=== PATIENT | female | born 2000 | race American Indian/Alaskan Native ===

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

== ENCOUNTER 2019-05-21 14:12 | Emergency (ER) | payer SELFPAY ==
[2019-05-21 14:19] VITALS: BP 131/59
--- NOTE | 2019-05-21 14:20 | Event Note ---
ED Screening Note ED Screening Note: diarrhea and vomiting; fever for 1 day feels like abd is getting bigger lmp 5 m ago no bc sexually active pcp none pmh none psh none just had baby 1 y ago; [id number] rx otc denies cig/etoh/drugs This initial assessment/diagnostic orders/clinical plan/treatment(s) is/are subject to change based on patients health status, clinical progression and re- assessment by fellow clinical providers in the ED. Further treatment and workup at subsequent clinical providers discretion. Patient/guardian urged not to elope from the ED as their condition may be serious if not clinically assessed and managed. Initial orders include: ua ro preg once neg KUB
--- NOTE | 2019-05-21 15:54 | Emergency Department Report ---
ED Abdominal Pain HPI - General Chief Complaint: Abdominal Pain Stated Complaint: VOMITING/DIFFICULTY WHEN HAVING A BOWEL MOVEMENT Time Seen by Provider: 05/21/19 14:18 Source: patient Mode of arrival: Ambulatory Limitations: No Limitations - History of Present Illness Initial Comments: 19 year old -Slov[place] female presents to the emergency room complaining of nausea and vomiting and abdominal pain since last night. Patient reports that she has pain with urination feels like pressure and has not had a bowel movement and 1.5 weeks. Patient does admit to not having a period 5 months. She also admits to eating starch and white dirt. Patient is 2 para 1. Location: diffuse Radiation: none Migration to: no migration Severity scale (0 -10): 9 Quality: fullness, other (pressure) Consistency: constant Improves With: nothing Worsens With: nothing Associated Symptoms: nausea, vomiting, constipation - Related Data LMP (females 10-50): other (5 months ago) Previous Rx's Medication Instructions Recorded Last Taken Type Ferrous Sulfate [Feosol 325 MG tab] 325 mg PO BID #60 tablet 02/13/18 Unknown Rx Ibuprofen [Motrin 600 MG tab] 600 mg PO Q6H #30 tablet 02/13/18 Unknown Rx Vit-Fe Fumar-FA [ 1 each PO QDAY #30 tablet 05/21/19 Unknown Rx Vitamin] Allergies Allergy/AdvReac Type Severity Reaction Status Date / Time banana AdvReac Rash Verified 01/07/18 22:16 ED Review of Systems ROS: Stated complaint: VOMITING/DIFFICULTY WHEN HAVING A BOWEL MOVEMENT Other details as noted in HPI Comment: All other systems reviewed and negative ED Past Medical Hx - Past Medical History Previous Medical History?: No Hx Hypertension: No Hx Congestive Heart Failure: No Hx Diabetes: No Hx Deep Vein Thrombosis: No Hx Renal Disease: No Hx Sickle Cell Disease: No Hx Seizures: No Hx Asthma: No Hx COPD: No Hx HIV: No - Surgical History Past Surgical History?: No - Social History Smoking Status: Never Smoker Substance Use Type: None - Medications Home Medications: Home Medications Medication Instructions Recorded Confirmed Last Taken Type Ferrous Sulfate [Feosol 325 MG tab] 325 mg PO BID #60 tablet 02/13/18 Unknown Rx Ibuprofen [Motrin 600 MG tab] 600 mg PO Q6H #30 tablet 02/13/18 Unknown Rx Vit-Fe Fumar-FA [ 1 each PO QDAY #30 tablet 05/21/19 Unknown Rx Vitamin] ED Physical Exam - General Limitations: No Limitations General appearance: alert, in no apparent distress - Head Head exam: Present: atraumatic, normocephalic - Eye Eye exam: Present: normal appearance - ENT ENT exam: Present: mucous membranes moist - Respiratory Respiratory exam: Present: normal lung sounds bilaterally. Absent: respiratory distress - GI/Abdominal GI/Abdominal exam: Present: soft, distended, normal bowel sounds. Absent: tenderness, guarding - Back Exam Back exam: Present: normal inspection - Neurological Exam Neurological exam: Present: alert, oriented X3 - Psychiatric Psychiatric exam: Present: normal affect, normal mood - Skin Skin exam: Present: warm, dry, intact, normal color. Absent: rash ED Course Vital Signs 05/21/19 14:18 Temperature 99.0 F Pulse Rate 101 H Respiratory 16 Rate Blood Pressure 131/59 O2 Sat by Pulse 98 Oximetry ED Medical Decision Making - Lab Data Result diagrams: 05/21/19 16:04 05/21/19 16:04 - Radiology Data Radiology results: report reviewed Patient: FAWAD MCGEE MR#: [id number] : 2000 Acct:[id number] Age/Sex: 19 / F ADM Date: 05/21/19 Loc: ED Attending Dr: Ordering Physician: KUMAR BLAKE Date of Service: 05/21/19 Procedure(s): US OB >= 14 wk fetus add gest Accession Number(s): [id number] cc: KUMAR BLAKE OB ultrasound. 05/21/2019. HISTORY: . Abdominal pain. FINDINGS: A viable intrauterine is dated 22 weeks 0 days. Estimated weight is 574 g. heart tones are 136 bpm. position is cephalic. The placenta is anteriorly located. Head circumference significantly lags femur length. IMPRESSION: 1. Viable intrauterine in the cephalic position. 2. Head circumference significantly lags femur length. Follow-up ultrasound is recommended. Signer Name: Leobardo Alford MD Signed: 05/21/2019 6:30 PM Workstation Name: [id number] Transcribed By: ES Dictated By: Leobardo Alford MD Electronically Authenticated By: Leobardo Alford MD Signed Date/Time: 05/21/191829 DD/ 26 TD/TT: - Medical Decision Making 19 year old -Slov[place] female presents to the emergency room complaining of nausea and vomiting and abdominal pain since last night. Patient reports that she has pain with urination feels like pressure and has not had a bowel movement and 1.5 weeks. Patient does admit to not having a period 5 months. She also admits to eating starch and white dirt. Patient is 2 para 1. Critical care attestation.: If time is entered above; I have spent that time in minutes in the direct care of this critically ill patient, excluding procedure time. ED Disposition Clinical Impression: 22 weeks gestation of Disposition: DC-01 TO HOME OR SELFCARE Is pt being admited?: No Does the pt Need Aspirin: No Condition: Stable Instructions: Abdominal Pain (ED) Additional Instructions: Please take vitamins as prescribed. Follow up with blow torch operator Dr. Elijah Jacob's information is listed below. Prescriptions: Vit-Fe Fumar-FA [ Vitamin] 1 each PO QDAY #30 tablet Referrals: PRIMARY CARE, [Primary Care Provider] - 3-5 Days [facility] [Provider Group] - 3-5 Days
[2019-05-21 16:30] LABS: Hematocrit 30.8 % (30.3-42.9); Hemoglobin 10.1 gm/dl (10.1-14.3); Mean Corpuscular HGB Conc 33 % (30-34); Mean Corpuscular Volume 82 fl (79-97); Platelet Count 235 K/mm3 (140-440); Red Blood Count 3.76 M/mm3 (3.65-5.03); Red Cell Distribution Width 13.9 % (13.2-15.2)
[2019-05-21 16:38] LABS: Alanine Aminotransferase 6 units/L (7-56); Albumin 3.3 g/dL (3.9-5); BUN/Creatinine Ratio 12; Blood Urea Nitrogen 6 mg/dL (7-17); Calcium 8.8 mg/dL (8.4-10.2); Hemolysis Index 22
--- NOTE | 2019-05-21 18:34 | Ultrasound Report ---
OB ultrasound. 05/21/2019. HISTORY: . Abdominal pain. FINDINGS: A viable intrauterine is dated 22 weeks 0 days. Estimated weight is 574 g. heart tones are 136 bpm. position is cephalic. The placenta is anteriorly located. Head circumference significantly lags femur length. IMPRESSION: 1. Viable intrauterine in the cephalic position. 2. Head circumference significantly lags femur length. Follow-up ultrasound is recommended. Signer Name: Leobardo Alford MD Signed: 05/21/2019 6:30 PM Workstation Name: [id number]
[2019-05-21 19:20] LABS: Bacteria,Urine 2+ /HPF (Negative); Bilirubin,Urine NEG (Negative); Blood,Urine NEG (Negative); Calcium Oxalate Crystals,Urine 1+; Color,Urine Yellow (Yellow); HCG Qualitative,Urine Positive (Negative); Mucus,Urine 2+ /HPF; Protein,Urine <15 mg/dL mg/dL (Negative); Urobilinogen,Urine < 2.0 mg/dL (<2.0)
== END 2019-05-21 19:20 | disposition home or self-care (01) ==
LOC: ED 14:12
DX: O21.9 Vomiting of pregnancy, unspecified (principal); O26.892 Other specified pregnancy related conditions, second trimester; R10.9 Unspecified abdominal pain; Z3A.22 22 weeks gestation of pregnancy
CPT/HCPCS: 36415; 76805; 76810; 80053; 81001; 81025; 83690; 84702; 85027; 87591

== ENCOUNTER 2019-09-01 22:47 | Outpatient (CLI) | payer MEDICAID, OTHER ==
[2019-09-02] MEDS ORDERED: LACTATED RINGERS 500 ML IV ONE (00:58)
[2019-09-02] MEDS ORDERED: LACTATED RINGERS 1,000 ML IV ONE (02:06)
[2019-09-02 02:16] LABS: Basophils % (Auto) 0.1 % (0.0-1.8); Eosinophils # (Auto) 0.2 K/mm3 (0.0-0.4); Eosinophils % (Auto) 1.5 % (0.0-4.3); Hematocrit 32.3 % (30.3-42.9); Hemoglobin 10.6 gm/dl (10.1-14.3); Lymphocytes # (Auto) 1.9 K/mm3 (1.2-5.4); Lymphocytes % (Auto) 17.9 % (13.4-35.0); Mean Corpuscular HGB Conc 33 % (30-34); Mean Corpuscular Volume 77 fl (79-97); Monocytes # (Auto) 1.1 K/mm3 (0.0-0.8); Monocytes % (Auto) 10.7 % (0.0-7.3); Platelet Count 213 K/mm3 (140-440); Red Blood Count 4.21 M/mm3 (3.65-5.03); Red Cell Distribution Width 15.7 % (13.2-15.2)
--- NOTE | 2019-09-02 04:28 | Ultrasound Report ---
ULTRASOUND OBSTETRIC second/third trimester. Indication: labor Findings: There is a single intrauterine . BPD = 8.2 cm = 37 weeks, 6 day(s). Head circumference = 31 cm = 34 weeks, 1 day(s). Abdominal circumference = 30 cm = 33 weeks, 6 day(s). Femur length = 7.1 cm = 36 weeks, 4 day(s). Overall estimated sonographic age = 34 weeks, 3 day(s). heart rate is 133 beats per minute. Estimated weight is 2450 grams position is cephalic. Cervix appears closed. movement is present. Placenta is anterior and grade 2 . Amniotic fluid volume appears normal. Maternal adnexa appear normal. Impression: 1. Single living intrauterine with estimated sonographic age of 34 weeks, 3 day(s). 2. No sonographic abnormality identified. ULTRASOUND BIOPHYSICAL PROFILE INDICATION / CLINICAL INFORMATION: labor. COMPARISON: None available. FINDINGS: BREATHING MOVEMENT = 2 GROSS BODY MOVEMENT = 2 TONE = 2 QUALITATIVE AMNIOTIC FLUID VOLUME = 2 TOTAL BIOPHYSICAL SCORE = 8/8 AMNIOTIC FLUID INDEX (cm) = PRESENTATION: Cephalic. HEART RATE (beats per minute): IMPRESSION: 1. biophysical profile = 8/8 Signer Name: Jose F Mckeon MD Signed: 09/02/2019 4:23 AM Workstation Name: [id number]
[2019-09-02 05:14] LABS: Amphetamine Screen,Urine PRESUMPTIVE NEGATIVE; Benzodiazepines Screen,Urine PRESUMPTIVE NEGATIVE; Cannabinoid Screen,Urine PRESUMPTIVE NEGATIVE; Cocaine Screen,Urine PRESUMPTIVE NEGATIVE; Methadone Screen,Urine PRESUMPTIVE NEGATIVE; Opiate Screen,Urine PRESUMPTIVE NEGATIVE
[2019-09-02 05:26] LABS: Amorphous Crystals,Urine 1+; Bacteria,Urine 1+ /HPF (Negative); Bilirubin,Urine NEG (Negative); Blood,Urine NEG (Negative); Color,Urine Yellow (Yellow); Mucus,Urine FEW /HPF; Protein,Urine <15 mg/dL mg/dL (Negative); Urobilinogen,Urine < 2.0 mg/dL (<2.0)
== END 2019-09-02 05:40 | disposition home or self-care (01) ==
LOC: TRG 22:47
PROVIDERS: ATTEND Obstetrics & Gynecology
DX: O60.03 Preterm labor without delivery, third trimester (principal); O26.853 Spotting complicating pregnancy, third trimester; O36.8130 Decreased fetal movements, third trimester, not applicable or unspecified; Z3A.31 31 weeks gestation of pregnancy
CPT/HCPCS: 36415; 76816; 76819; 80307; 81001; 85025; 96360; J7120

== ENCOUNTER 2019-09-20 18:30 | Inpatient (IN) | payer MEDICAID, OTHER ==
[2019-09-20] MEDS ORDERED: OXYTOCIN 10 UNIT/1 ML INJ ONE (18:54)
[2019-09-20] MEDS ORDERED: METHYLERGONOVINE MALEATE 0.2 MG/ML VIAL IM ONE (19:08)
[2019-09-20] MEDS ORDERED: OXYTOCIN 20 UNIT/1000ML DRIP 20,000 MILLIUNITS/1,000 ML BAG IV ONE (19:27)
[2019-09-20] MEDS ORDERED: TERBUTALINE 1 MG/1 ML INJ IVP PRN (19:36)
[2019-09-20] MEDS ORDERED: TERBUTALINE 1 MG/1 ML INJ SUB-Q PRN (19:36)
[2019-09-20] MEDS ORDERED: MINERAL OIL 30 ML ORAL LIQD PO PRN (19:36)
[2019-09-20] MEDS ORDERED: LIDOCAINE (2%) 20 MG/1 ML VIAL 20 ML MDV INFILTRATI ONE (19:36)
[2019-09-20] MEDS ORDERED: ePHEDrine SULFATE 50 MG/1 ML INJ IV PRN (19:36)
--- NOTE | 2019-09-20 19:36 | History and Physical Report ---
History of Present Illness Date of examination: 09/20/19 Chief complaint: Labor History of present illness: Pt is a 19 yo BF EDC 10/11/19; EGA 37 0/7 weeks presents to L&D complaining of RUC's q 3-4 mins with SROM and now ready to deliver. She received limited care at [facility] with 1 visit 09/14/19. records are available and GBS is Negative. Past History Past Medical History: no pertinent history Past Surgical History: no surgical history Family/Genetic History: heart disease, hypertension, stroke Social history: no significant social history, single - Obstetrical History Expected Date of Delivery: 10/11/19 Actual Gestation: 37 Week(s) 0 Day(s) : 3 Medications and Allergies Allergies Allergy/AdvReac Type Severity Reaction Status Date / Time banana Allergy Rash Verified 09/20/19 19:43 Home Medications Medication Instructions Recorded Confirmed Last Taken Type Ferrous Sulfate [Feosol 325 MG tab] 325 mg PO BID #60 tablet 02/13/18 Unknown Rx Ibuprofen [Motrin 600 MG tab] 600 mg PO Q6H #30 tablet 02/13/18 Unknown Rx Vit-Fe Fumar-FA [ 1 each PO QDAY #30 tablet 05/21/19 Unknown Rx Vitamin] Review of Systems All systems: negative - Physical Exam Breasts: Positive: deferred Abdomen: Positive: normal appearance Genitourinary (Female): Positive: normal external genitalia Vagina: Positive: normal moisture Uterus: Positive: enlarged Extremities: Positive: normal - Obstetrical FHR: category 1 Uterine Contraction Monitor Mode: External Cervical Dilatation: 10 Cervical Effacement Percentage: 100 station: +2 Uterine Contraction Pattern: Regular Uterine Tone Measurement Phase: Contraction Uterine Contraction Intensity: Strong/Firm Results Result Diagrams: 09/20/19 19:05 All other labs normal. Assessment and Plan - Patient Problems (1) 37 weeks gestation of Onset Date: 09/20/19 Current Visit: Yes Status: Acute Plan to address problem: A: IUP @ 37 0/7 weeks in labor Insufficient care GBS negative P: Admit to L&D for expectant vaginal delivery (2) Insufficient care Onset Date: 09/20/19 Current Visit: No Status: Acute Qualifiers: Trimester: third trimester Qualified Code(s): O09.33 - Supervision of with insufficient care, third trimester
[2019-09-20] MEDS ORDERED: MAGNESIUM HYDROXIDE (MOM) ORAL LIQD UDC PO PRN (19:39)
[2019-09-20] MEDS ORDERED: ACETAMINOPHEN 325 MG TAB PO PRN (19:39)
[2019-09-20] MEDS ORDERED: PROMETHAZINE 25 MG TAB PO PRN (19:39)
[2019-09-20] MEDS ORDERED: METHYLERGONOVINE MALEATE 0.2 MG/ML VIAL IM PRN (19:39)
[2019-09-20] MEDS ORDERED: PROMETHAZINE 25 MG RECT SUPP PR PRN (19:39)
[2019-09-20] MEDS ORDERED: HYDROcodone/ACETAMINOPHEN 5-325 MG TAB PO PRN (19:39)
[2019-09-20] MEDS ORDERED: diphenhydrAMINE 25 MG CAP PO PRN (19:39)
[2019-09-20] MEDS ORDERED: LANOLIN/ZINC/DIMETHICONE (LANSINOH) 7 GM TP PRN (19:39)
[2019-09-20] MEDS ORDERED: WITCH HAZEL/ GLYCERIN PAD TP PRN (19:39)
[2019-09-20] MEDS ORDERED: ONDANSETRON 4 MG/2 ML INJ IV PRN (19:39)
--- NOTE | 2019-09-20 19:49 | Procedure Note ---
OB Delivery Note - Delivery Date of Delivery: 09/20/19 Surgeon: INDIA HUGHES Estimated blood loss: 300cc - Vaginal Delivery presentation: vertex Delivery position: OA Intrapartum events: precipitous labor- <3hr Delivery induction: none Delivery monitor: external FHT, external uterine Route of delivery: Delivery placenta: spontaneous Delivery cord: 3 umbilical vessels Episiotomy: none Delivery laceration: none Anesthesia: none Delivery comments: delivered OA and placed on Mom's chest for [id number] bonding and delayed cord clamping - A at 1 minute: 8 at 5 minutes: 9 Infant Gender: Male (3060gms)
[2019-09-20] MEDS ORDERED: miSOPROStol 200 MCG TAB PR ONE (20:00)
[2019-09-20] MEDS ORDERED: OXYTOCIN 20 UNIT/1000ML DRIP 20 UNITS/1,000 ML BAG IV SCH ×2 (20:00)
[2019-09-20] MEDS ORDERED: LACTATED RINGERS 1,000 ML IV SCH (20:00)
[2019-09-20] MEDS ORDERED: OXYTOCIN DRIP 30 UNITS/500 ML BAG IV SCH (20:00)
[2019-09-20] MEDS: IBUPROFEN 600 MG TAB PO SCH (20:05)
[2019-09-20 21:20] LABS: Hematocrit 32.9 % (30.3-42.9); Hemoglobin 10.7 gm/dl (10.1-14.3); Mean Corpuscular HGB Conc 33 % (30-34); Mean Corpuscular Volume 77 fl (79-97); Platelet Count 197 K/mm3 (140-440); Red Blood Count 4.29 M/mm3 (3.65-5.03); Red Cell Distribution Width 15.8 % (13.2-15.2)
[2019-09-21] MEDS ORDERED: TETANUS,DIPH,PERTUSS(ACELL) VACCINE 0.5 ML SYRINGE IM ONE (06:00)
[2019-09-21 08:18] LABS: Hematocrit 27.7 % (30.3-42.9); Hemoglobin 8.8 gm/dl (10.1-14.3)
[2019-09-21] MEDS: FERROUS SULFATE 325 MG TAB PO SCH (10:49)
[2019-09-21] MEDS: PRENATAL VIT27-FE FUMARATE-FOLIC ACID VIT TAB PO SCH (10:49)
[2019-09-21] MEDS: IBUPROFEN 600 MG TAB PO SCH ×2 (12:00→18:34)
--- NOTE | 2019-09-21 16:29 | Progress Note ---
Assessment and Plan - Patient Problems (1) 37 weeks gestation of Onset Date: 09/20/19 Current Visit: Yes Status: Resolved (2) Insufficient care Onset Date: 09/20/19 Current Visit: No Status: Resolved Qualifiers: Trimester: third trimester Qualified Code(s): O09.33 - Supervision of with insufficient care, third trimester (3) (normal spontaneous vaginal delivery) Onset Date: 09/21/19 Current Visit: No Status: Resolved Plan to address problem: A: S/P - PPD #1 Doing well Asymptomatic anemia - stable Carpel tunnel syndrome - bilateral wrists P: May go home tomorrow Depoprovera 150 mg IM Obtain PT consultation (4) Acute carpal tunnel syndrome Onset Date: 09/21/19 Current Visit: Yes Status: Chronic Qualifiers: Laterality: right Qualified Code(s): G56.01 - Carpal tunnel syndrome, right upper limb Subjective - Subjective Date of service: 09/21/19 Principal diagnosis: s/p - PPD #1 Interval history: Pt is feeling well, but complains of tingling sensation in her fingers. Bleeding improved. Desires Depoprovera for contraception. Patient reports: appetite normal, voiding normally, pain well controlled, flatus, ambulating normally, no dizzy ambulation, no nauseated : doing well, nursing well Objective - Vital Signs Latest vital signs: Vital Signs Temp Pulse Resp BP BP Pulse Ox 09/21/19 11:58 98.6 F 88 20 115/78 99 09/21/19 07:58 98.5 F 105 H 20 105/64 98 09/20/19 22:07 98.0 F 97 H 18 114/67 114/67 09/20/19 20:45 81 121/70 09/20/19 20:09 109 H 100 09/20/19 20:05 18 09/20/19 20:04 91 H 100 09/20/19 20:00 98.3 F 87 18 126/67 09/20/19 19:59 85 100 Intake and Output 09/21/19 09/21/19 09/21/19 06:59 14:59 22:59 Intake Total 360 480 Output Total 500 400 Balance -140 80 Intake: Oral 480 Intake, Free Water 360 Output: Urine 500 400 Void 500 400 Other: Total, Intake Amount 480 Total, Output Amount 500 400 - Exam Breasts: Present: deferred Abdomen: Present: normal appearance, soft Uterus: Present: normal, firm, fundal height below umbilicus Extremities: Present: normal - Labs Labs: Abnormal lab results 09/20/19 09/21/19 Range/Units 19:05 07:50 WBC 13.9 H (4.5-11.0) K/mm3 Hgb 8.8 L (10.1-14.3) gm/dl Hct 27.7 L (30.3-42.9) % MCV 77 L (79-97) fl MCH 25 L (28-32) pg RDW 15.8 H (13.2-15.2) % Laboratory Tests 09/20/19 09/20/19 09/21/19 19:05 19:05 07:50 WBC 13.9 H RBC 4.29 Hgb 10.7 8.8 L Hct 32.9 27.7 L MCV 77 L MCH 25 L MCHC 33 RDW 15.8 H Plt Count 197 Blood Type B POSITIVE Antibody Screen Negative
[2019-09-21] MEDS ORDERED: medroxyPROGESTERone ACETATE 150 MG/ML SYRINGE IM ONE ×2 (16:31→18:33)
[2019-09-21] MEDS ORDERED: MEASLES, MUMPS & RUBELLA 12,500 UNIT/0.5 ML VACCINE SUB-Q ONE (19:39)
[2019-09-22] MEDS: IBUPROFEN 600 MG TAB PO SCH ×2 (07:10→12:34)
[2019-09-22] MEDS: PRENATAL VIT27-FE FUMARATE-FOLIC ACID VIT TAB PO SCH (09:23)
[2019-09-22] MEDS: FERROUS SULFATE 325 MG TAB PO SCH (09:23)
--- NOTE | 2019-09-22 11:09 | Discharge Summary ---
Providers - Providers Date of Admission: 09/20/19 19:37 Date of discharge: 09/22/19 Attending physician: INDIA HUGHES 09/21/19 16:29 Physical Therapy Evaluation and Treat [CONS] Urgent Comment: Reason For Exam: Carpel tunnel syndrome Primary care physician: INDIA HUGHES Hospitalization Reason for admission: active labor, rupture of membranes, IUP at term Delivery: Episiotomy: none Laceration: none Other procedures: none complications: none Discharge diagnosis: IUP at term delivered baby: male Hospital course: Unremarkable. Condition at discharge: Good Disposition: DC-01 TO HOME OR SELFCARE - Discharge Diagnoses (1) 37 weeks gestation of Status: Resolved (2) Insufficient care Status: Resolved Qualifiers: Trimester: third trimester Qualified Code(s): O09.33 - Supervision of with insufficient care, third trimester (3) (normal spontaneous vaginal delivery) Status: Resolved (4) Acute carpal tunnel syndrome Status: Chronic Qualifiers: Laterality: right Qualified Code(s): G56.01 - Carpal tunnel syndrome, right upper limb Plan - Discharge Medications Prescriptions: Ferrous Sulfate [Feosol 325 MG tab] 325 mg PO BID #60 tablet Ibuprofen [Motrin 600 MG tab] 600 mg PO Q6HR #30 tablet Vit-Fe Fumar-FA [ Vitamin] 1 each PO QDAY #30 tablet - Provider Discharge Summary Activity: routine, no sex for 6 weeks, no heavy lifting 4 weeks, no strenuous exercise Diet: routine Instructions: routine Additional instructions: [] Smoking cessation referral if applicable(refer to patient education folder for contact #) [] Refer to [facility] Booklet Call your doctor immediately for: * Fever > 100.5 * Heavy vaginal bleeding ( >1 pad per hour) * Severe persistent headache * Shortness of breath * Reddened, hot, painful area to leg or breast * Drainage or odor from incision. * Keep incision clean and dry at all times and follow doctor's instructions regarding bathing/showering - Follow up plan Follow up: INDIA HUGHES MD [Primary Care Provider] - 6 Weeks KHADIJAH CAMPUZANO NP [Referring] - 6 Weeks
[2019-09-22 16:17] VITALS: BP 117/70
== END 2019-09-22 16:50 | disposition home or self-care (01) | DRG 775 ==
LOC: LD 18:30 → TRG 18:30 → LD 19:37 → OB 21:45
PROVIDERS: ADMIT Obstetrics & Gynecology; ATTEND Obstetrics & Gynecology
PROC: 10E0XZZ Delivery of Products of Conception, External Approach (ICD-10-PCS; principal; 2019-09-20)
PROC: 3E0234Z Introduction of Serum, Toxoid and Vaccine into Muscle, Percutaneous Approach (ICD-10-PCS; 2019-09-20)
PROC: 3E0134Z Introduction of Serum, Toxoid and Vaccine into Subcutaneous Tissue, Percutaneous Approach (ICD-10-PCS; 2019-09-20)
DX: O62.3 Precipitate labor (principal); O99.354 Diseases of the nervous system complicating childbirth; G56.01 Carpal tunnel syndrome, right upper limb; Z3A.37 37 weeks gestation of pregnancy; Z37.0 Single live birth; Z23 Encounter for immunization; Z82.49 Family history of ischemic heart disease and other diseases of the circulatory system; Z82.3 Family history of stroke
CPT/HCPCS: 36415; 59025; 85014; 85018; 85027; 86850; 86900; 86901; 90471; 90715; 96360; 96372; G0378; J1050; J2210; J2590

== ENCOUNTER 2019-11-30 22:32 | Emergency (ER) | payer SELFPAY ==
[2019-12-01 01:38] VITALS: BP 121/66
--- NOTE | 2019-12-01 01:53 | Emergency Department Report ---
Chief Complaint: Upper Respiratory Infection Stated Complaint: CHEST PAIN Time Seen by Provider: 12/01/19 01:35 - HPI History of Present Illness: Patient is a 19-year-old female presents emergency room with complaints of cold- like symptoms that began a couple days ago. She has associated congestion, dry cough, rhinorrhea, nasal congestion. She denies any sore throat, ear pain, nausea, vomiting, diarrhea, fever, shortness of breath. She states that her daughter is at home with a URI. She has no past medical history or allergies to medications. She is currently on her menstrual cycle. Vitals are normal. On exam Non toxic appearing, no acute distress atraumatic, normocephalic normal appearance of the eyes, PERRL, EOMI, no periorbital edema or ecchymosis moist mucus membranes Normal oropharynx, no tonsillar hypertrophy or exudates, normal TMs and canals bilaterally, clear nasal congestion bilateral turbinates, no sinus tenderness to palpation regular heart rate and rhythm, no gallops, no rubs, no murmurs breath sounds are clear bilaterally, no w/r/r, no stridor, no respiratory distress, no accessory muscle use A&O x4, no focal neuro deficit skin is warm, dry, intact Examination consistent with viral URI Discussed supportive care and symptomatic treatment with patient Discussed the importance of oral rehydration No clinical signs symptoms of pneumonia No sinusitis, otitis, pharyngitis Medical screening examination performed and there is no threat to life or limb at this time Patient referred to a primary care doctor She states that she has appointment on 12-02-19 at [facility] Discussed strict return precautions with patient - Exam Vital Signs: Vital Signs 11/30/19 22:51 Temperature 99.3 F Pulse Rate 95 H Respiratory 20 Rate Blood Pressure 121/66 O2 Sat by Pulse 100 Oximetry MSE screening note: Focused history and physical exam performed. ED Disposition for MSE Clinical Impression: Upper respiratory infection Qualifiers: URI type: unspecified URI Qualified Code(s): J06.9 - Acute upper respiratory infection, unspecified Disposition: MED SCREENING EXAM-LEFT Is pt being admited?: No Does the pt Need Aspirin: No Condition: Stable Instructions: Upper Respiratory Infection (ED) Additional Instructions: May take Mucinex and TheraFlu [id number]. Increase your fluid intake. May drink warm tea, do warm salt water gargles, use a humidifier. May use Flonase nasal spray. Follow-up with a primary care doctor. Return to the emergency room for any new or worsening symptoms. Referrals: [facility] [Outside] - 2-3 Days Time of Disposition: 01:52 Print Language: EGYPTIAN
== END 2019-12-01 02:00 | disposition left against medical advice (07) ==
LOC: ED 22:32
DX: J06.9 Acute upper respiratory infection, unspecified (principal)
CPT/HCPCS: 99282

== ENCOUNTER 2021-03-09 00:42 | Emergency (ER) | payer SELFPAY ==
[2021-03-09 01:44] VITALS: BP 113/50
== END 2021-03-09 01:53 | disposition left against medical advice (07) ==
LOC: ED 00:42
DX: L56.9 Acute skin change due to ultraviolet radiation, unspecified (principal); Z53.21 Procedure and treatment not carried out due to patient leaving prior to being seen by health care provider

== ENCOUNTER 2021-07-24 19:53 | Emergency (ER) | payer SELFPAY ==
--- NOTE | 2021-07-24 21:24 | Emergency Department Report ---
ED General Adult HPI - General Chief complaint: Abdominal Pain Stated complaint: BACK/VAGINAL PAIN WHEN URINATING Time Seen by Provider: 07/24/21 21:20 Source: patient Mode of arrival: Ambulatory Limitations: No Limitations - History of Present Illness Initial comments: Patient 21-year-old -[place] female G2, P2, A 0, who presents for right flank pain radiating to lower abdomen. Pain described as 4/10 aching decimated by movement and laying on her back. Patient denies fall injury or trauma, patient does endorse urinary frequency and urgency there is no hematuria she denies vaginal discharge or concern for STI. No nausea no vomiting. Is been no loss or decrease in bowel or bladder function. Patient is alert oriented x3 amatory with steady gait. There is no nausea or vomiting patient does denies history of renal stones. Is been no fever or chills to this date. - Related Data Previous Rx's Medication Instructions Recorded Last Taken Type Ferrous Sulfate [Feosol 325 MG tab] 325 mg PO BID #60 tablet 02/13/18 Unknown Rx Ibuprofen [Motrin 600 MG tab] 600 mg PO Q6H #30 tablet 02/13/18 Unknown Rx Vit-Fe Fumar-FA [ 1 each PO QDAY #30 tablet 05/21/19 Unknown Rx Vitamin] Ferrous Sulfate [Feosol 325 MG tab] 325 mg PO BID #60 tablet 09/22/19 Unknown Rx Ibuprofen [Motrin 600 MG tab] 600 mg PO Q6HR #30 tablet 09/22/19 Unknown Rx Vit-Fe Fumar-FA [ 1 each PO QDAY #30 tablet 09/22/19 Unknown Rx Vitamin] Miconazole 2% [Monistat 7 Vag 1 applicator VG QHS 7 Days #1 tube 07/25/21 Unknown Rx Cream] metroNIDAZOLE [metroNIDAZOLE 70 gm VG DAILY 7 Days #1 gel.w.appl 07/25/21 Unknown Rx VAGINAL 0.75% gel] Allergies Allergy/AdvReac Type Severity Reaction Status Date / Time banana Allergy Rash Verified 09/20/19 19:43 ED Review of Systems ROS: Stated complaint: BACK/VAGINAL PAIN WHEN URINATING Other details as noted in HPI Constitutional: denies: chills, fever Eyes: denies: eye pain, eye discharge, vision change ENT: denies: ear pain, throat pain Respiratory: denies: cough, shortness of breath, wheezing Cardiovascular: denies: chest pain, palpitations Endocrine: no symptoms reported Gastrointestinal: abdominal pain. denies: nausea, vomiting, diarrhea Genitourinary: urgency, dysuria, frequency Musculoskeletal: back pain Skin: denies: rash, lesions Neurological: denies: headache, weakness, paresthesias Psychiatric: denies: anxiety, depression Hematological/Lymphatic: denies: easy bleeding, easy bruising ED Past Medical Hx - Past Medical History Hx Hypertension: No Hx Congestive Heart Failure: No Hx Diabetes: No Hx Deep Vein Thrombosis: No Hx Renal Disease: No Hx Sickle Cell Disease: No Hx Seizures: No Hx Asthma: No Hx COPD: No Hx HIV: No - Surgical History Past Surgical History?: No - Social History Smoking Status: Never Smoker Substance Use Type: None - Medications Home Medications: Home Medications Medication Instructions Recorded Confirmed Last Taken Type Ferrous Sulfate [Feosol 325 MG tab] 325 mg PO BID #60 tablet 02/13/18 Unknown Rx Ibuprofen [Motrin 600 MG tab] 600 mg PO Q6H #30 tablet 02/13/18 Unknown Rx Vit-Fe Fumar-FA [ 1 each PO QDAY #30 tablet 05/21/19 Unknown Rx Vitamin] Ferrous Sulfate [Feosol 325 MG tab] 325 mg PO BID #60 tablet 09/22/19 Unknown Rx Ibuprofen [Motrin 600 MG tab] 600 mg PO Q6HR #30 tablet 09/22/19 Unknown Rx Vit-Fe Fumar-FA [ 1 each PO QDAY #30 tablet 09/22/19 Unknown Rx Vitamin] Miconazole 2% [Monistat 7 Vag 1 applicator VG QHS 7 Days #1 tube 07/25/21 Unknown Rx Cream] metroNIDAZOLE [metroNIDAZOLE 70 gm VG DAILY 7 Days #1 gel.w.appl 07/25/21 Unknown Rx VAGINAL 0.75% gel] ED Physical Exam - General Limitations: No Limitations General appearance: alert, in no apparent distress - Head Head exam: Present: atraumatic, normocephalic - Eye Eye exam: Present: normal appearance, EOMI Pupils: Present: normal accommodation - ENT ENT exam: Present: normal exam, mucous membranes moist - Neck Neck exam: Present: normal inspection, full ROM. Absent: tenderness - Respiratory Respiratory exam: Present: normal lung sounds bilaterally. Absent: respiratory distress, wheezes, stridor - Cardiovascular Cardiovascular Exam: Present: regular rate, normal rhythm, normal heart sounds. Absent: systolic murmur, diastolic murmur, rubs, gallop - GI/Abdominal GI/Abdominal exam: Present: soft, normal bowel sounds. Absent: distended, tenderness, guarding, rebound, rigid - Rectal Rectal exam: Present: deferred - Extremities Exam Extremities exam: Present: normal inspection, full ROM. Absent: tenderness - Back Exam Back exam: Present: full ROM, CVA tenderness (R). Absent: CVA tenderness (L), vertebral tenderness - Neurological Exam Neurological exam: Present: alert, oriented X3, CN II-XII intact, normal gait. Absent: motor sensory deficit - Expanded Neurological Exam Expanded Patient oriented to: Present: person, place, time Motor strength exam: RUE: 5, LUE: 5, RLE: 5, LLE: 5 Best Eye Response ([place]): (4) open spontaneously Best Motor Response ([place]): (6) obeys commands Best Verbal Response ([place]): (5) oriented [place] Total: 15 - Psychiatric Psychiatric exam: Present: normal affect, normal mood - Skin Skin exam: Present: warm, dry, intact, normal color. Absent: rash ED Medical Decision Making - Lab Data Result diagrams: 07/24/21 21:24 07/24/21 21:24 Lab Results 07/24/21 07/24/21 07/24/21 Range/Units 21:24 21:24 22:30 WBC 10.7 (4.5-11.0) K/mm3 RBC 4.02 (3.65-5.03) M/mm3 Hgb 12.2 (10.1-14.3) gm/dl Hct 36.9 (30.3-42.9) % MCV 92 (79-97) fl MCH 30 (28-32) pg MCHC 33 (30-34) % RDW 12.7 L (13.2-15.2) % Plt Count 211 (140-440) K/mm3 Lymph % (Auto) 4.4 L (13.4-35.0) % [place] % (Auto) 10.6 H (0.0-7.3) % Eos % (Auto) 0.1 (0.0-4.3) % Baso % (Auto) 0.3 (0.0-1.8) % Lymph # (Auto) 0.5 L (1.2-5.4) K/mm3 [place] # (Auto) 1.1 H (0.0-0.8) K/mm3 Eos # (Auto) 0.0 (0.0-0.4) K/mm3 Baso # (Auto) 0.0 (0.0-0.1) K/mm3 Seg Neutrophils % 84.6 H (40.0-70.0) % Seg Neutrophils # 9.1 H (1.8-7.7) K/mm3 Sodium 137 (137-145) mmol/L Potassium 3.8 (3.6-5.0) mmol/L Chloride 107.4 H (98-107) mmol/L Carbon Dioxide 17 L (22-30) mmol/L Anion Gap 16 mmol/L BUN 10 (7-17) mg/dL Creatinine 0.6 (0.6-1.2) mg/dL Estimated GFR > 60 ml/min BUN/Creatinine Ratio 17 % Glucose 104 H (65-100) mg/dL Calcium 9.2 (8.4-10.2) mg/dL Total Bilirubin 0.50 (0.1-1.2) mg/dL AST 9 (5-40) units/L ALT 7 (7-56) units/L Alkaline Phosphatase 43 (35-129) units/L Total Protein 7.0 (6.3-8.2) g/dL Albumin 3.9 (3.9-5) g/dL Albumin/Globulin Ratio 1.3 % Urine Color Yellow (Yellow) Urine Turbidity Slightly-cloudy (Clear) Urine pH 6.0 (5.0-7.0) Ur Specific [place] 1.013 (1.003-1.030) Urine Protein 30 mg/dl (Negative) mg/dL Urine Glucose (UA) Neg (Negative) mg/dL Urine Ketones Neg (Negative) mg/dL Urine Blood Lg (Negative) Urine Nitrite Pos (Negative) Urine Bilirubin Neg (Negative) Urine Urobilinogen < 2.0 (<2.0) mg/dL Ur Leukocyte Esterase Lg (Negative) Urine WBC (Auto) > 182.0 H (0.0-6.0) /HPF Urine RBC (Auto) 19.0 (0.0-6.0) /HPF Urine Bacteria (Auto) 4+ (Negative) /HPF Urine Mucus Few /HPF Urine Yeast ([place]) 2+ /HPF Urine HCG, Qual Positive A (Negative) - Radiology Data Radiology results: report reviewed, image reviewed OB ultrasound INDICATION: FINDINGS: Right ovary measures 5.0 x 1.2 x 2.6 cm. Left ovary 2.2 x 1.2 x 4.3 cm. Uterus measures 10.1 x 5.1 x 6.7 cm. Gestational sac measures 35.3 mm measuring 8 weeks 5 days. [place]-rump length 12.1 mm measures 7 weeks 3 days. No heart rate is visualized this time. IMPRESSION: No heart rate is identified. There is a gestational sac and pole measuring ultrasound age 8 weeks 1 day. Signer Name: Isiah Berger MD Signed: 07/25/2021 1:00 AM Workstation Name: [id number] - Medical Decision Making OB ultrasound results single IUP 7 weeks 3 days, no heart rate noted, UA noted for nitrites leukocytes trace blood bacteria, patient states symptoms are rated at 2/10 at this time denies active bleeding, plan follow-up with ENDODONTIST tomorrow. Patient treated with Rocephin and azithromycin in ED. Prescriptions for metronidazole gel,, patient will follow-up with ENDODONTIST in a.m. And/or return to emergency department should symptoms worsen. Patient verbalized agre ement and understanding with discharge plan. Patient DC'd to home in stable condition at this time. Patient is currently alert oriented x3 tolerating p.o. intake and ambulatory with steady gait. Critical care attestation.: If time is entered above; I have spent that time in minutes in the direct care of this critically ill patient, excluding procedure time. ED Disposition Clinical Impression: UTI (urinary tract infection) during Qualifiers: Trimester: first trimester Qualified Code(s): O23.41 - Unspecified infection of urinary tract in , first trimester Abdominal pain during Qualifiers: Trimester: first trimester Qualified Code(s): O26.891 - Other specified pregna ncy related conditions, first trimester; R10.9 - Unspecified abdominal pain Disposition: HOME / SELF CARE / HOMELESS Is pt being admited?: No Does the pt Need Aspirin: No Condition: Stable Instructions: Abdominal Pain (ED), Abdominal Pain During , and Urinary Tract Infection Additional Instructions: Take all medications as prescribed, follow-up with ENDODONTIST tomorrow, and to emergency department should symptoms worsen. Prescriptions: Miconazole 2% [Monistat 7 Vag Cream] 1 applicator VG QHS 7 Days #1 tube metroNIDAZOLE [metroNIDAZOLE VAGINAL 0.75% gel] 70 gm VG DAILY 7 Days #1 gel.w.appl Referrals: JEFFREY HOU MD [Staff Physician] - 3-5 Days Forms: Work/School Release Form(ED) Time of Disposition: 01:29
[2021-07-24 21:35] LABS: Basophils % (Auto) 0.3 % (0.0-1.8); Eosinophils % (Auto) 0.1 % (0.0-4.3); Hematocrit 36.9 % (30.3-42.9); Hemoglobin 12.2 gm/dl (10.1-14.3); Lymphocytes # (Auto) 0.5 K/mm3 (1.2-5.4); Lymphocytes % (Auto) 4.4 % (13.4-35.0); Mean Corpuscular HGB Conc 33 % (30-34); Mean Corpuscular Volume 92 fl (79-97); Monocytes # (Auto) 1.1 K/mm3 (0.0-0.8); Monocytes % (Auto) 10.6 % (0.0-7.3); Platelet Count 211 K/mm3 (140-440); Red Blood Count 4.02 M/mm3 (3.65-5.03); Red Cell Distribution Width 12.7 % (13.2-15.2)
[2021-07-24 21:56] LABS: Alanine Aminotransferase 7 units/L (7-56); Albumin 3.9 g/dL (3.9-5); Blood Urea Nitrogen 10 mg/dL (7-17); Calcium 9.2 mg/dL (8.4-10.2); Hemolysis Index 10
[2021-07-24 22:01] LABS: BUN/Creatinine Ratio 17
[2021-07-24 22:55] LABS: Bacteria,Urine 4+ /HPF (Negative); Bilirubin,Urine NEG (Negative); Blood,Urine LG (Negative); Color,Urine Yellow (Yellow); Mucus,Urine FEW /HPF; Urobilinogen,Urine < 2.0 mg/dL (<2.0)
[2021-07-24 22:58] LABS: WBC,Urine > 182.0 /HPF (0.0-6.0)
[2021-07-24 22:59] LABS: HCG Qualitative,Urine Positive (Negative)
[2021-07-24] MEDS ORDERED: LIDOCAINE-MPF (1%) 10 MG/1 ML VIAL 5 ML INFILTRATI ONE (23:20)
[2021-07-24] MEDS ORDERED: AZITHROMYCIN 250 MG TAB PO ONE (23:20)
--- NOTE | 2021-07-25 01:05 | Ultrasound Report ---
OB ultrasound INDICATION: FINDINGS: Right ovary measures 5.0 x 1.2 x 2.6 cm. Left ovary 2.2 x 1.2 x 4.3 cm. Uterus measures 10. 1 x 5.1 x 6.7 cm. Gestational sac measures 35.3 mm measuring 8 weeks 5 days. [place]-rump length 12.1 m m measures 7 weeks 3 days. No heart rate is visualized this time. IMPRESSION: No heart rate is identified. There is a gestational sac and pole measuring ultrasound age 8 weeks 1 day. Signer Name: Isiah Berger MD Signed: 07/25/2021 1:00 AM Workstation Name: [id number]
== END 2021-07-25 04:31 | disposition home or self-care (01) ==
LOC: ED 19:53
DX: O23.41 Unspecified infection of urinary tract in pregnancy, first trimester (principal); O26.891 Other specified pregnancy related conditions, first trimester; N39.0 Urinary tract infection, site not specified; Z3A.08 8 weeks gestation of pregnancy; R10.9 Unspecified abdominal pain; Z91.018 Allergy to other foods
CPT/HCPCS: 36415; 76801; 80053; 81001; 81025; 84702; 85025; 99283

== ENCOUNTER 2022-06-15 17:28 | Emergency (ER) | payer MEDICAID ==
[2022-06-15 17:38] VITALS: BP 123/56
[2022-06-15 21:35] LABS: Color,Urine Yellow (Yellow)
[2022-06-15 21:43] LABS: Amorphous Crystals,Urine 2+; Mucus,Urine FEW /HPF
[2022-06-15 22:26] LABS: Hematocrit 34.5 % (30.3-42.9); Mean Corpuscular HGB Conc 35 % (30-34); Mean Corpuscular Volume 87 fl (79-97); Platelet Count 229 K/mm3 (140-440); Red Blood Count 3.96 M/mm3 (3.65-5.03); Red Cell Distribution Width 14.3 % (13.2-15.2)
--- NOTE | 2022-06-15 22:42 | Ultrasound Report ---
ULTRASOUND OBSTETRIC INDICATION / CLINICAL INFORMATION: preg, vag bleeding. Clinical Gestational Age (GA): Unknown TECHNIQUE: Transabdominal. Endovaginal COMPARISON: None available. FINDINGS: GESTATIONAL SAC: Well-defined oval shape and intrauterine in location. YOLK SAC: No significant abnormality. EMBRYO/FETUS: No significant abnormality. - [place]-Rump Length = 8.3 cm = 14 weeks, 2 day(s). - Heart Rate, beats per minute (if present) = 147 ADNEXA: No significant abnormality. Both ovaries well-visualized and without abnormality. FREE FLUID: None. ADDITIONAL FINDINGS: None. IMPRESSION: 1. Single, living intrauterine with estimated sonographic age of 14 weeks, 2 day(s). Signer Name: Arianna Zeng MD Signed: 06/15/2022 10:38 PM Workstation Name: [id number]
--- NOTE | 2022-06-15 22:42 | Ultrasound Report ---
ULTRASOUND OBSTETRIC INDICATION / CLINICAL INFORMATION: preg, vag bleeding. Clinical Gestational Age (GA): Unknown TECHNIQUE: Transabdominal. Endovaginal COMPARISON: None available. FINDINGS: GESTATIONAL SAC: Well-defined oval shape and intrauterine in location. YOLK SAC: No significant abnormality. EMBRYO/FETUS: No significant abnormality. - [place]-Rump Length = 8.3 cm = 14 weeks, 2 day(s). - Heart Rate, beats per minute (if present) = 147 ADNEXA: No significant abnormality. Both ovaries well-visualized and without abnormality. FREE FLUID: None. ADDITIONAL FINDINGS: None. IMPRESSION: 1. Single, living intrauterine with estimated sonographic age of 14 weeks, 2 day(s). Signer Name: Arianna Zeng MD Signed: 06/15/2022 10:38 PM Workstation Name: [id number]
[2022-06-15 22:45] LABS: Alanine Aminotransferase 7 units/L (7-56); Albumin 4.2 g/dL (3.9-5); Blood Urea Nitrogen 12 mg/dL (7-17); Calcium 9.1 mg/dL (8.4-10.2); Hemolysis Index 2
[2022-06-15 22:49] LABS: BUN/Creatinine Ratio 17
--- NOTE | 2022-06-15 23:08 | Emergency Department Report ---
<PIERRE WYLIE - Last Filed: 06/15/22 23:04> ED HPI - General Chief complaint: Vaginal Bleeding Stated complaint: 12WEEKS PREG /BLEEDING Time Seen by Provider: 06/15/22 20:49 Source: patient Mode of arrival: Ambulatory Limitations: No Limitations - History of Present Illness Initial comments: 22-year-old black female with no past medical history presents to the emergency department for evaluation of vaginal bleeding during . Patient states that she is with 2 miscarriages and 1 and is currently about 12 to 13 weeks gestation. States that she started having vaginal bleeding about 1 week ago that has been intermittent and spotting. She states that she is also having some intermittent abdominal pain. She denies fever, dysuria, and vaginal discharge. MD Complaint: abdominal pain, vaginal bleeding -: week(s) (1) Location: abdomen Radiation: none Severity scale (0 -10): 3 Quality: cramping Consistency: intermittent Associated symptoms: vaginal bleeding, abdominal pain. denies: nausea/vomiting, vaginal discharge, dysuria, headache, vision changes, malaise, dysparuenia, kim h, seizure, shortness of breath, syncope, weakness Vaginal bleeding: none :: Yes Number of weeks : 12 OB History - Current : no complications OB History - Previous Pregnancies: miscarriage Pre-[facility] care: followed by OB ([facility]) - Related Data : 6 Para: 2 Ab: 3 Previous Rx's Medication Instructions Recorded Last Taken Type Ferrous Sulfate [Feosol 325 MG tab] 325 mg PO BID #60 tablet 02/13/18 Unknown Rx Ibuprofen [Motrin 600 MG tab] 600 mg PO Q6H #30 tablet 02/13/18 Unknown Rx Vit-Fe Fumar-FA [ 1 each PO QDAY #30 tablet 05/21/19 Unknown Rx Vitamin] Ferrous Sulfate [Feosol 325 MG tab] 325 mg PO BID #60 tablet 09/22/19 Unknown Rx Ibuprofen [Motrin 600 MG tab] 600 mg PO Q6HR #30 tablet 09/22/19 Unknown Rx Vit-Fe Fumar-FA [ 1 each PO QDAY #30 tablet 09/22/19 Unknown Rx Vitamin] Miconazole 2% [Monistat 7 Vag 1 applicator VG QHS 7 Days #1 tube 07/25/21 Unknown Rx Cream] metroNIDAZOLE [metroNIDAZOLE 70 gm VG DAILY 7 Days #1 gel.w.appl 07/25/21 Unknown Rx VAGINAL 0.75% gel] cephALEXin [Keflex] 500 mg PO Q12HR 7 Days #14 cap 06/15/22 Unknown Rx Allergies Allergy/AdvReac Type Severity Reaction Status Date / Time banana Allergy Rash Verified 06/15/22 17:32 ED Review of Systems Comment: All other systems reviewed and negative Constitutional: denies: chills, fever ENT: denies: congestion Respiratory: denies: shortness of breath Cardiovascular: denies: chest pain, palpitations, dyspnea on exertion, orthopnea, edema, syncope, paroxysmal nocturnal dyspnea Gastrointestinal: abdominal pain. denies: nausea, vomiting, diarrhea, hematemesis, melena, hematochezia Genitourinary: denies: urgency, dysuria Musculoskeletal: denies: back pain Skin: denies: rash, lesions Neurological: denies: headache, weakness ED Past Medical Hx - Past Medical History Hx Hypertension: No Hx Congestive Heart Failure: No Hx Diabetes: No Hx Deep Vein Thrombosis: No Hx Renal Disease: No Hx Sickle Cell Disease: No Hx Seizures: No Hx Asthma: No Hx COPD: No Hx HIV: No - Surgical History Past Surgical History?: No - Social History Smoking Status: Never Smoker Substance Use Type: None - Medications Home Medications: Home Medications Medication Instructions Recorded Confirmed Last Taken Type Ferrous Sulfate [Feosol 325 MG tab] 325 mg PO BID #60 tablet 02/13/18 Unknown R x Ibuprofen [Motrin 600 MG tab] 600 mg PO Q6H #30 tablet 02/13/18 Unknown Rx Vit-Fe Fumar-FA [ 1 each PO QDAY #30 tablet 05/21/19 Unknown Rx Vitamin] Ferrous Sulfate [Feosol 325 MG tab] 325 mg PO BID #60 tablet 09/22/19 Unknown Rx Ibuprofen [Motrin 600 MG tab] 600 mg PO Q6HR #30 tablet 09/22/19 Unknown Rx Vit-Fe Fumar-FA [ 1 each PO QDAY #30 tablet 09/22/19 Unknown Rx Vitamin] Miconazole 2% [Monistat 7 Vag 1 applicator VG QHS 7 Days #1 tube 07/25/21 Unknown Rx Cream] metroNIDAZOLE [metroNIDAZOLE 70 gm VG DAILY 7 Days #1 gel.w.appl 07/25/21 Unknown Rx VAGINAL 0.75% gel] cephALEXin [Keflex] 500 mg PO Q12HR 7 Days #14 cap 06/15/22 Unknown Rx ED Physical Exam - General Limitations: No Limitations General appearance: alert, in no apparent distress - Head Head exam: Present: atraumatic, normocephalic - Eye Eye exam: Present: normal appearance. Absent: conjunctival injection, periorbital swelling, periorbital tenderness - ENT ENT exam: Present: normal exam - Neck Neck exam: Present: normal inspection. Absent: tenderness, lymphadenopathy - Respiratory Respiratory exam: Present: normal lung sounds bilaterally. Absent: respiratory distress, wheezes, rales, rhonchi, stridor, chest wall tenderness - Cardiovascular Cardiovascular Exam: Present: regular rate, normal heart sounds - GI/Abdominal GI/Abdominal exam: Present: normal bowel sounds. Absent: soft, distended, tenderness, guarding, rebound, rigid - Extremities Exam Extremities exam: Present: normal inspection, full ROM, normal capillary refill. Absent: tenderness, pedal edema, joint swelling, calf tenderness - Back Exam Back exam: Present: normal inspection, full ROM. Absent: tenderness, CVA tende rness (R), CVA tenderness (L), paraspinal tenderness, vertebral tenderness - Neurological Exam Neurological exam: Present: alert, oriented X3, CN II-XII intact, normal gait, reflexes normal. Absent: motor sensory deficit - Psychiatric Psychiatric exam: Present: normal affect, normal mood - Skin Skin exam: Present: warm, dry, intact, normal color ED Medical Decision Making - Lab Data Result diagrams: 06/15/22 21:27 06/15/22 21:27 - Radiology Data Radiology results: report reviewed, image reviewed ultrasound: FINDINGS: GESTATIONAL SAC: Well-defined oval shape and intrauterine in location. YOLK SAC: No significant abnormality. EMBRYO/FETUS: No significant abnormality. - [place]-Rump Length = 8.3 cm = 14 weeks, 2 day(s). - Heart Rate, beats per minute (if present) = 147 ADNEXA: No significant abnormality. Both ovaries well-visualized and without abnormality. FREE FLUID: None. ADDITIONAL FINDINGS: None. IMPRESSION: 1. Single, living intrauterine with estimated sonographic age of 14 weeks, 2 day(s). - Medical Decision Making 22-year-old black female with no past medical history presents to the emergency department for evaluation of vaginal bleeding during . Patient states that she is with 2 miscarriages and 1 and is currently about 12 to 13 weeks gestation. States that she started having vaginal bleeding about 1 week ago that has been intermittent and spotting. She states that she is also having some intermittent abdominal pain. She denies fever, dysuria, and vaginal discharge. Physical exam unremarkable. ultrasound positive for IUP at 14 weeks. Urine positive for urinary tract infection. Patient will be discharged home with 7-day course of Keflex and advised to follow-up with [facility] next week as planned. She is advised to return to the emergency department as needed. She verbalizes understanding of and agreement with plan of care. ED Disposition Clinical Impression: Vaginal bleeding during UTI (urinary tract infection) Qualifiers: Urinary tract infection type: acute cystitis Hematuria presence: without hematuria Qualified Code(s): N30.00 - Acute cystitis without hematuria Disposition: HOME / SELF CARE / HOMELESS Is pt being admited?: No Does the pt Need Aspirin: No Condition: Stable Instructions: Antibiotic Medicine, Adult, [id number], Urinary Tract Infection, Adult, [id number], and Urinary Tract Infection Additional Instructions: Take medications as prescribed. Follow-up with your [facility] next week as planned. Return to the emergency department as needed. Prescriptions: cephALEXin [Keflex] 500 mg PO Q12HR 7 Days #14 cap Referrals: [facility] [Provider Group] - 3-5 Days Forms: Work/School Release Form(ED) Time of Disposition: 23:10 <ALEX COLEMAN - Last Filed: 06/15/22 23:57> ED Review of Systems ROS: Stated complaint: 12WEEKS PREG /BLEEDING Other details as noted in HPI ED Course Vital Signs 06/15/22 06/15/22 17:37 23:30 Temperature 98.0 F Pulse Rate 90 88 Respiratory 20 16 Rate Blood Pressure 123/56 O2 Sat by Pulse 100 98 Oximetry ED Medical Decision Making - Lab Data Result diagrams: 06/15/22 21:27 06/15/22 21:27 - Medical Decision Making Rh+ as per previous medical record review Critical care attestation.: If time is entered above; I have spent that time in minutes in the direct care of this critically ill patient, excluding procedure time. ED Disposition Is pt being admited?: No
== END 2022-06-15 23:30 | disposition home or self-care (01) ==
LOC: ED 17:28
DX: O46.91 Antepartum hemorrhage, unspecified, first trimester (principal); O23.41 Unspecified infection of urinary tract in pregnancy, first trimester; N39.0 Urinary tract infection, site not specified; Z3A.12 12 weeks gestation of pregnancy
CPT/HCPCS: 36415; 76801; 76817; 80053; 81001; 84702; 85027; 99284

== ENCOUNTER 2022-06-22 21:39 | Emergency (ER) | payer MEDICAID ==
[2022-06-22 21:59] VITALS: BP 127/68
[2022-06-23 03:22] LABS: Blood Urea Nitrogen 9 mg/dL (7-17); Hemolysis Index 3
[2022-06-23 03:23] LABS: Hematocrit 35.7 % (30.3-42.9); Hemoglobin 11.9 gm/dl (10.1-14.3); Mean Corpuscular HGB Conc 33 % (30-34); Mean Corpuscular Volume 88 fl (79-97); Platelet Count 242 K/mm3 (140-440); Red Blood Count 4.05 M/mm3 (3.65-5.03); Red Cell Distribution Width 14.4 % (13.2-15.2)
[2022-06-23 03:31] LABS: BUN/Creatinine Ratio 18
--- NOTE | 2022-06-23 05:17 | Emergency Department Report ---
Blank Doc - Documentation Documentation: 22-year-old female presenting with vaginal bleeding, , and think she mi ght be miscarrying. Patient states she is 4 months General: Nontoxic appearing no acute distress Cardiac: Regular rate, normal heart sounds Respiratory: Normal lung sounds bilaterally no use of [place] muscles GI/-normal sounds, nontender no guarding Musculoskeletal-normal inspection full range of motion Neuro-alert oriented x4. In the setting of a significantly high volume and record number of patients presenting to the emergency department and the fact that we have a limited space to see patients we have implemented the provider in triage protocol this allows an expedited initial exam of patients that might otherwise have left without being seen or who would wait longer than usual to be seen by provider. I interviewed the patient This patient is a pulled from the waiting room to triage room for an initial assessment of adrenal studies and then returned to the waiting room pending results of the studies. The ultimate final evaluation and disposition may be performed by another provider depending on room and provider availability.
--- NOTE | 2022-06-23 07:43 | Ultrasound Report ---
ULTRASOUND OBSTETRIC INDICATION / CLINICAL INFORMATION: , [place] [id number]. - Clinical Gestational Age (GA) in weeks, days: Unknown TECHNIQUE: Transabdominal. COMPARISON: 06/15/2022 FINDINGS: Single intrauterine . Biparietal Diameter = 3.1 cm = 15, 6 weeks, days Head Circumference = 11.8 cm = 15, 6 weeks, days Abdominal Circumference = 10.8 cm = 16, 5 weeks, days Femur Length = 1.9 cm = 15, 30 weeks, days Average Ultrasound Age (AUA) = 16, 0 weeks, days Heart Rate: 147 beats per minute. Estimated Weight in grams (if calculated): 144 g EDC by ultrasound is 12/08/2022. Appropriate growth since the prior exam. Position: cephalic. Cervix: closed. Length in cm (if measured): Not calculated Placenta: anterior and free of the os. Amniotic Fluid Volume: normal IMPRESSION: 1. Single, living intrauterine with estimated sonographic age of 16 weeks, 0 days. 2. No significant sonographic abnormality. Signer Name: Grant Vargas MD Signed: 06/23/2022 7:39 AM Workstation Name: [facility] [place]
== END 2022-06-23 12:02 | disposition left against medical advice (07) ==
LOC: ED 21:39
DX: O20.8 Other hemorrhage in early pregnancy (principal); Z3A.00 Weeks of gestation of pregnancy not specified
CPT/HCPCS: 36415; 76805; 80048; 84702; 85027; 99283